=== PATIENT | female | born 1970 | race Two or more races ===

== ENCOUNTER → 2024-05-01 | Outpatient (CLI) | payer MEDICAID, SELFPAY ==
--- NOTE | 2024-05-01 13:15 | XR_ITS ---
Examination: Breast ultrasound, unilateral, right complete Date and time of exam: Hours Indications: Right nipple pain and burning sensation beginning 5 months ago Technique: Real-time gee scale ultrasonographic imaging performed right breast including all 4 quadrants as well as nipple retroareolar and axillary region. Findings: No cystic or solid mass Impression: BI-RADS Category 1: Negative study
--- NOTE | 2024-05-01 13:45 | XR_ITS ---
Examination: Diagnostic digital mammography, unilateral, right Computer aided detection 3-D breast Tomosynthesis, unilateral Date and time of exam: May 01, 2024 1255 hrs. Indications: Right nipple pain and burning sensation in the right breast 5 months Technique: Nonmagnified MLO, CC views of the right breast have been obtained, reconstructed from 3-D Tomosynthesis images. R2 computer aided detection program utilized for evaluation of suspicious masses and/or abnormal calcifications. 3-D Tomosynthesis images obtained. Findings: The breast is heterogeneously dense, which may obscure small masses 20 mm focal asymmetry indistinct margins upper outer right breast Benign calcifications Impression: BI-RADS category 0 incomplete: Need additional imaging evaluation 20 mm focal asymmetry indistinct margins upper outer right breast, recommend follow-up spot tomographic views of this asymmetry as well as left mammogram follow-up to complete the workup
== END | disposition home or self-care (01) ==
PROVIDERS: PCP Physician Assistant; Referring Provider Physician Assistant; Visit Provider Physician Assistant
DX: R92.8 Other abnormal and inconclusive findings on diagnostic imaging of breast (principal); N64.89 Other specified disorders of breast
CPT/HCPCS: 76641; 77061; 77065; G0279

== ENCOUNTER → 2024-07-25 | Outpatient (CLI) | payer MEDICAID, SELFPAY ==
--- NOTE | 2024-07-25 | XR_ITS ---
Examination: Diagnostic digital mammography, bilateral Computer aided detection 3-D breast Tomosynthesis, bilateral Date and time of exam: July 25, 2024 1111 hours INDICATIONS: Mammogram May 01, 2024 20 mm focal asymmetry outer right breast Technique: Nonmagnified MLO, CC views of the breasts to been obtained, reconstructed from 3-D Tomosynthesis images. R2 computer aided detection program utilized for evaluation of suspicious masses and/or abnormal calcifications. 3-D Tomosynthesis images obtained. Findings: The breast is heterogeneously dense, which may obscure small masses Probably benign glandular tissue outer right breast Impression: 3: Probably benign findings Recommend 1 additional 6 month right mammogram follow-up to document stability of probably benign glandular tissue outer right breast.
--- NOTE | 2024-07-25 10:40 | XR_ITS ---
Examination: Breast ultrasound, unilateral, right complete Date and time of exam: July 25, 2024 1055 hours INDICATIONS: Mammogram May 01, 2024 20 mm focal asymmetry indistinct margins upper outer right breast Technique: Real-time gee scale ultrasonographic imaging performed right breast including all 4 quadrants as well as nipple retroareolar and axillary region. Findings: Retroareolar circumscribed nodule 4 x 4 millimeter Probably benign glandular tissue in the right breast at the area concern 11:00 position IMPRESSION: BI-RADS Category 3: Probably benign findings. One additional 6 month right breast sonogram follow-up is needed to document stability of the retroareolar nodule described above and to confirm glandular tissue in the 11:00 position right breast, at the area concern
== END | disposition home or self-care (01) ==
LOC: CDIM 10:33
PROVIDERS: Referring Provider Physician Assistant; Visit Provider Physician Assistant
DX: N64.89 Other specified disorders of breast (principal); N63.41 Unspecified lump in right breast, subareolar
CPT/HCPCS: 76641; 77062; 77066; G0279